=== PATIENT | male | born 1985 | race Caucasian/White ===

== ENCOUNTER 2025-01-31 16:47 | Emergency (ER) | payer MEDICAID ==
[~2025-01-31] VITALS: Ht 182.9 cm; Wt 91.0 kg
[2025-01-31 16:49] VITALS: O2SAT 100
[2025-01-31 17:45] LABS: BASOPHILS % 0.5 % (0.0-2.0); EOSINOPHILS % 5.7 % (0.0-5.0); HEMATOCRIT. 39.6 % (42.0-52.0); HEMOGLOBIN. 13.3 g/dL (14.0-18.0); LYMPHOCYTES % 24.5 % (20.0-50.0); MEAN PLATELET VOLUME 9.4 fl (7.4-10.4); MONOCYTES % 13.4 % (2.0-8.0); NEUTROPHILS % 55.9 % (40.0-76.0); PLATELET 128 x1000/uL (130-400); RED BLOOD CELL COUNT 4.56 mill/uL (4.7-6.1); RED CELL DISTRIBUTION WIDTH 13.9 % (11.6-14.6)
[2025-01-31 17:59] LABS: CREATININE 0.9 mg/dL (0.6-1.3)
[2025-01-31 18:00] LABS: UREA NITROGEN BLOOD 8 mg/dL (9-23)
[2025-01-31] MEDS: LORAZEPAM 0.5MG TABLET PO ONE (18:52)
[2025-01-31 19:08] VITALS: BP 108/65; PULSE 49; RESP 13; TEMP 36.7; O2SAT 99
== END 2025-01-31 19:16 | disposition home or self-care (01) ==
LOC: ER 16:47
DX: G40.909 Epilepsy, unspecified, not intractable, without status epilepticus (principal); Z88.0 Allergy status to penicillin; Z79.899 Other long term (current) drug therapy
CPT/HCPCS: 36415; 80048; 85025; 93005; 99284